=== PATIENT | female | born 1945 | race Caucasian/White ===

== ENCOUNTER 2016-06-19 07:40 | Outpatient (CLI) | payer OTHER | END 2016-06-19 07:41 | disposition home or self-care (01) | DX: Z01.812 Encounter for preprocedural laboratory examination (principal); N39.0 Urinary tract infection, site not specified; R73.09 Other abnormal glucose ==

== ENCOUNTER 2017-01-13 20:30 | Outpatient (CLI) | payer OTHER | END 2017-01-13 20:31 | disposition critical access hospital (66) | LOC: EMS 20:30 | PROVIDERS: ATTEND Surgery | DX: R55 Syncope and collapse (principal) | CPT/HCPCS: A0425; A0427 ==

== ENCOUNTER 2017-01-13 20:57 | Observation (INO) | payer MEDICARE, OTHER ==
--- NOTE | 2017-01-13 21:20 | ED Physician Documentation ---
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 near syncope tonight got up from her chair and felt near syncopal sat down - no fall or injury sx lasted 20 min per EMS daughter described pt as pale and diaphoretic pulse not checked - do not know if fast or slow - pt was breathing by report no CP or SOA or palp no recent med changes no hx of same Review of Systems Constitutional: denies: Fever, Chills Cardiac: denies: Chest pain / pressure, Palpitations Respiratory: denies: Dyspnea GI: denies: Abdominal Pain, Nausea, Vomiting Neurologic: reports: Near syncope Immunocompromised: denies: Immunocompromised PD PAST MEDICAL HISTORY - Past Medical History Past Medical History: Yes Cardiovascular: High cholesterol Endocrine/Autoimmune: HyPOthyroidism GI: GERD - Past Surgical History Past Surgical History: Yes Ortho: Carpal Tunnel surgery HEENT: Tonsil/Adenoidectomy - Present Medications Home Medications: Ambulatory Orders Medication Instructions Recorded Confirmed Diflunisal 500 mg PO BID 07/30/14 01/13/17 Levothyroxine [Synthroid] 150 mg PO DAILY 06/04/15 01/13/17 Hydrocodone/Acetaminophen 1 tab PO Q6HR PRN 01/13/17 01/13/17 [Hydrocodon-Acetaminophn 10-325] - Allergies Allergies/Adverse Reactions: Allergies Allergy/AdvReac Type Severity Reaction Status Date / Time meperidine HCl * Allergy Unknown Verified 07/30/14 09:14 [From Demerol] Penicillins Allergy Unknown Verified 07/30/14 09:14 - Social History Does the pt smoke?: No Smoking Status: Never smoker Does the pt drink ETOH?: Yes ETOH Use: Wine Does the pt have substance abuse?: No - Immunizations Immunizations are current?: No Immunizations: TDAP current <10years - POLST Patient has POLST: No PD ED PE NORMAL - Vitals Vital signs reviewed: Yes - General General: Alert and oriented X 3 - Cardiac Cardiac: RRR - Respiratory Respiratory: No respiratory distress, Clear bilaterally - Abdomen Abdomen: Soft, Non tender - Derm Derm: Normal color - Neuro Neuro: Alert and oriented X 3, 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, No motor deficit, Normal speech - Psych Psych: Normal mood Results - Vitals Vitals: Vital Signs - 24 hr 01/13/17 01/13/17 01/13/17 21:00 22:38 23:42 Temperature 36.6 C Heart Rate 82 74 76 Respiratory 20 16 16 Rate Blood Pressure 127/60 105/84 H 108/53 L O2 Saturation 96 95 94 Oxygen O2 Source Room air - EKG (time done) 2104 Rate: Rate (enter#) Rhythm: NSR Intervals: Normal CT QRS: Normal Ischemia: Non specific changes (flat T waves inf and lateral) - Labs Labs: Laboratory Tests 01/13/17 01/13/17 01/13/17 21:20 21:20 21:20 WBC 6.8 RBC 4.22 Hgb 14.0 Hct 41.2 MCV 97.7 MCH 33.3 H MCHC 34.0 RDW 13.2 Plt Count 244 MPV 8.1 Neut # 4.7 Lymph # 1.5 [place] # 0.5 Eos # 0.1 Baso # 0.0 Absolute Nucleated RBC 0.00 Nucleated RBC % 0.1 Sodium 136 Potassium 3.6 Chloride 100 L Carbon Dioxide 22 Anion Gap 14.0 H BUN 15 Creatinine 0.8 Estimated GFR (MDRD) 71 L Glucose 168 H Calcium 9.1 Total Bilirubin 0.3 AST 21 ALT 15 Alkaline Phosphatase 85 Troponin I < 0.04 Total Protein 7.1 Albumin 3.9 Globulin 3.2 Albumin/Globulin Ratio 1.2 Lipase 45 - Rads (name of study) [facility] Radiology: See rad report (neg) PD MEDICAL DECISION MAKING - ED course ED course: NSR on EKG and tele but merits longer period of tele and echo will req hospitalist to admit tele obs spoke to hospitalist - she req [facility] Departure - Departure Disposition: ED Place in Observation Clinical Impression: Near syncope Discharge Date/Time: 01/14/17 00:12
[2017-01-13 21:28] LABS: BASOPHILS % (AUTO) 0.4 %; EOSINOPHILS # (AUTO) 0.1 10^3/uL (0.0-0.7); EOSINOPHILS % (AUTO) 1.6 %; HCT - HEMATOCRIT 41.2 % (37.0-47.0); LYMPHOCYTES # (AUTO) 1.5 10^3/uL (1.5-3.5); LYMPHOCYTES % (AUTO) 21.5 %; MEAN CORPUSCULAR HEMOGLOBIN 33.3 pg (27.0-31.0); MEAN CORPUSCULAR VOLUME 97.7 fL (81.0-99.0); MEAN PLATELET VOLUME 8.1 fL (7.9-10.8); MONOCYTES # (AUTO) 0.5 10^3/uL (0.0-1.0); MONOCYTES % (AUTO) 7.5 %; NEUTROPHILS # (AUTO) 4.7 10^3/uL (1.5-6.6); NUCLEATED RED BLOOD CELLS AUTO 0.1 /100WBC; RED BLOOD COUNT 4.22 10^6/uL (4.20-5.40); RED CELL DISTRIBUTION WIDTH 13.2 % (12.0-15.0); UNCORRECTED WHITE BLOOD COUNT 6.8 x10^3/uL; WHITE BLOOD COUNT 6.8 x10^3/uL (4.8-10.8)
[2017-01-13] MEDS: SODIUM CHLORIDE 0.9% 1,000 ML IV ONE (21:30)
[2017-01-13 21:42] LABS: ALBUMIN/GLOBULIN RATIO 1.2 (1.0-2.2); BILIRUBIN,TOTAL 0.3 mg/dL (0.2-1.0); CALCIUM 9.1 mg/dL (8.5-10.3); CREATININE 0.8 mg/dL (0.4-1.0); POTASSIUM 3.6 mmol/L (3.5-5.0); TOTAL PROTEIN 7.1 g/dL (6.7-8.2)
[2017-01-13] MEDS ORDERED: SODIUM CHLORIDE FLUSH 0.9% 10 ML SYRINGE IVP PRN (23:54)
[2017-01-13] MEDS ORDERED: ONDANSETRON 4 MG/2 ML VIAL IVP PRN (23:54)
--- NOTE | 2017-01-14 00:30 | CT Preliminary Report ---
Exam: CT HEAD W/O IMPRESSION: Normal head CT. [facility] SITE ID: [id number]
--- NOTE | 2017-01-14 00:33 | CT Report ---
EXAM: CT HEAD EXAM DATE: 01/14/2017 12:03 AM. CLINICAL HISTORY: Near syncope. COMPARISON: Head CT 09/13/2007. TECHNIQUE: Multiaxial CT images were obtained from the foramen magnum to the vertex. Reformats: Coron al. IV contrast: None. In accordance with CT protocol optimization, one or more of the following dose reduction techniques w ere utilized for this exam: automated exposure control, adjustment of mA and/or KV based on patient s ize, or use of iterative reconstructive technique. FINDINGS: Parenchyma: No intraparenchymal hemorrhage. No evidence of mass, midline shift, or CT findings of inf arction. Sutton-white differentiation is distinct. Extraaxial Spaces: Normal for age. No subdural or epidural collections identified. Ventricles: Normal in size and position. Sinuses and Orbits: Imaged paranasal sinuses, orbits, and mastoids show no significant abnormality. Bones: No evidence of fracture or calvarial defect. Other: None. IMPRESSION: Normal head CT. [facility] Referring Provider Line: [phone] SITE ID: [id number]
[2017-01-14] MEDS: SODIUM CHLORIDE 0.9% 1,000 ML IV ONE (02:12)
--- NOTE | 2017-01-14 02:20 | HISTORY & PHYSICAL EXAMINATION ---
DATE OF ADMISSION: 01/13/2017 Please note that I did see the patient and entered admission orders prior to midnight. CHIEF COMPLAINT: Presyncope. 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 She is fully functional and usually in good general health. She had screening outpatient cardiology evaluation in the past, but was not found with any cardiac abnormality. She does have hypothyroidism and osteoarthritis. No other chronic medical problems. The patient was brought into the ER by ambulance after she experienced a presyncopal episode at her home, which lasted for about 20 minutes. The patient reported that she was watching television on the evening of 01/13/2017, she got up from a chair, at which time she felt dizzy. She needed to lower herself on the floor and she felt like she could not move. The patient described that she felt paralyzed. Subsequently, she texted her daughter, who lives next door, and came to help her. However, later on, the patient did not remember texting her daughter. The daughter described that the patient appeared pale, diaphoretic and slow with her responses. She also appeared somewhat confused. The daughter called 911 and en route, the patient spontaneously recovered and by the time I interviewed her, she was back to her normal and usual state of health. Regarding additional symptoms, the patient denied chest pain, shortness of breath, or loss of consciousness. She, however, felt nauseous and had a mild headache during the episode. Upon presentation to the ER, the patient was hemodynamically stable, although her blood pressure was borderline low around 100/80. She was afebrile, and her ER workup was negative. In particular, she had an unremarkable EKG. Negative CT scan of the brain. Unremarkable laboratory workup. Negative troponin. Urinalysis was sent, but is pending at the time of this dictation. PAST MEDICAL HISTORY: 1. Hypothyroidism. 2. Osteoarthritis. 3. Degenerative disk disease of the spine with L4-L5 stenosis. 4. Outpatient medications include thyroid supplements and p.r.n. hydrocodone. REVIEW OF SYSTEMS Please see pertinent positives and pertinent negatives listed above in the history of presenting illness, there was no additional complaint on the 12- point review. FAMILY HISTORY: Positive for amyloidosis in the mother. Father is healthy and alive at age 95. SOCIAL HISTORY: The patient does not smoke. She drinks alcohol occasionally. CODE STATUS IS FULL CODE. ER workup revealed per electronic medical record. PHYSICAL EXAMINATION: VITAL SIGNS: Temperature of 36.6 Celsius, respiration rate 18, oxygen saturation 96% on room air, heart rate in the 70s, blood pressure 110/80. GENERAL: The patient is a well-developed female who was not in distress. HEENT: Skin: No pallor, no jaundice. Sclerae are mildly injected. CARDIOVASCULAR: S1, S2, regular rate and rhythm. No murmur, rub, or gallop. RESPIRATORY: Clear to auscultation without wheeze or crackle. ABDOMEN: Soft, benign, nontender. Bowel tones heard. LYMPH: Mild pitting edema. MUSCULOSKELETAL: Atraumatic. NEUROLOGIC: Alert, oriented, intact cognition and mentation. Neurologically nonfocal. PSYCH: Cooperative. ASSESSMENT AND PLAN: The patient is a 71-year-old, fully functional female with not much past medical history, who presented with an episode of presyncope. ER workup was negative, and there is no obvious reason to explain the presyncopal episode. Therefore, she will be kept overnight, monitored on telemetry to rule out cardiac arrhythmia. In addition, we will request outpatient records to be sent. We will review outpatient records to see what kind of prior tests and workup the patient had. In particular, will check if she had a recent echocardiogram, carotid ultrasound or any additional study. As far as etiology of the patient's presentation, most likely she experienced a vagal response plus /minus an orthostatic change. Short episode of cardiac arrhythmia is also possible. PLAN AND ORDERS: 1. The patient is getting admitted under observation, will be monitored on telemetry, we will request outpatient records to see prior tests and workups. If the patient remains stable overnight, then she can be safely discharged and possibly have further tests performed as an outpatient. In addition, we will check urinalysis and orthostatic vital signs. 2. DVT prophylaxis with foot pumps, if the patient remains hospitalized beyond 24 hours, then we will consider pharmacologic prophylaxis, as well. Time spent in the care of this patient was 50 minutes. JOB #: [id number] EXT JOB #:[id number] EBONY
[2017-01-14] MEDS ORDERED: HYDROcod/ACETAM 10 MG/325 MG TABLET PO PRN (04:55)
[2017-01-14] MEDS ORDERED: ACETAMINOPHEN 500 MG TABLET PO SCH (05:35)
[2017-01-14 05:41] LABS: BILIRUBIN,URINE NEGATIVE (NEGATIVE); PH,URINE 5.5 PH (5.0-7.5)
[2017-01-14 05:49] LABS: UA w/ MICROSCOPIC CHARGE YES
[2017-01-14 05:55] LABS: UR CULTURE IF IND INDICATED; WBC,URINE 0-3 /HPF (0-5)
[2017-01-14] MEDS ORDERED: SODIUM CHLORIDE FLUSH 0.9% 10 ML SYRINGE IVP SCH (06:00)
--- NOTE | 2017-01-14 06:30 | XRAY Preliminary Report ---
Exam: XR CHEST 2 VIEW PA/LAT IMPRESSION: 1. Borderline heart size. No acute abnormality. [facility] SITE ID: [id number]
--- NOTE | 2017-01-14 06:32 | XRAY Report ---
EXAM: CHEST RADIOGRAPHY EXAM DATE: 01/14/2017 06:19 AM. CLINICAL HISTORY: Presyncope. COMPARISON: 07/06/2007. TECHNIQUE: 2 views. FINDINGS: Lungs/Pleura: No alveolar consolidation or pleural effusion. No pneumothorax. Mediastinum: Heart size upper normal. Aortic atherosclerosis. Other: None. IMPRESSION: 1. Borderline heart size. No acute abnormality. [facility] Referring Provider Line: [phone] SITE ID: [id number]
[2017-01-14] MEDS ORDERED: LEVOTHYROXINE 75 MCG TABLET PO SCH (07:00)
[2017-01-14] MEDS ORDERED: POLYETHYLENE GLYCOL 3350 17 GM PACKET PO SCH (09:00)
[2017-01-14] MEDS ORDERED: DIFLUNISAL 500 MG PO SCH (09:30)
[2017-01-14] MEDS ORDERED: SMX/TMP 800MG/160MG 10ML 20 ML in DEXTROSE 5% 500 ML IV ONE (10:17)
--- NOTE | 2017-01-14 10:30 | Discharge Plan ---
Discharge Plan Disposition: Home, Self Care Condition: Good Prescriptions: Sulfamethox/Trimeth 800/160 [Bactrim Ds] 1 tab PO BID 7 Days #13 tablet Diet: Regular Activity Restrictions: No Restrictions Shower Restrictions: No Driving Restrictions: No Weight Bearing: Full Weight Additional Instructions or Follow Up instructions: Please see your PCP in the next few days as a follow up to this hospital stay. Please finish your whole course of antibiotics for UTI. If urinary incontinence continues, further evaluation should be completed. Drink plenty of fluids. No Smoking: If you smoke, Please STOP! Call for help. Follow-up with: Delphine Dykes MD [Primary Care Provider] -
--- NOTE | 2017-01-14 10:31 | DISCHARGE SUMMARY ---
Discharge Summary Admit Date: 01/13/17 Discharge Date: 01/14/17 Discharging Provider: DEONTE Mccarty Primary Care Provider: Delphine Dykes Code Status: Attempt Resuscitation Condition at Discharge: Good Discharge Disposition: 01 Home, Self Care - DIAGNOSES Admission Diagnoses: Syncope UTI AMS Dizziness DVT prophylaxis Full code status Discharge Diagnoses with Status of Each Condition: UTI: Patient was found to have a positive UA that was obtained in the ED for nitrites and bacteria. Cultures grew out Escherichia coli Plan: Patient started on Bactrim that will be continued for 7 days. Pre-syncope: Patient reports to have some warning when an episode comes on. Plan: Stay well hydrated and monitor blood pressure if able. Follow up with PCP after discharge. AMS: This was very temporary, but noted to have some episodes of not remembering certain events. Plan: Take precautions to prevent further episodes. Urinary Incontinence: This was first noticed weeks prior to actual UTI detected. Plan:If this is not improving, patient was advised for further work up. - HPI History of Present Illness: Zamzam Mazariegos is a 71 year old female with a PMX of hypothyroidism, osteoarthritis, and degenerative disk disease of the spine L4-L5 stenosis, who came to the ED with unexplained presyncopal episode. 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 In the evening of 01/13, she was watching TV, got up to go into the kitchen, felt dizzy and lowered herself to the floor. She described herself as feeling paralyzed, texted her daughter for help, but does not remember that. Her daughter told the EMS that her mother looked pale, diaphoretic, mildly confused, and had slow responses. Once she arrived in the ED, she was feeling better, but was admitted for observation for a syncope work up, UA and telemetry monitoring. - HOSPITAL COURSE Hospital Course: Patient had a fairly non-eventful work up, but was found to have a UTI that may have been the cause of her syncope. She was encouraged to stay hydrated and to get further work up of her urinary incontinence if it does not improve. - ALLERGIES Allergies/Adverse Reactions: Allergies Allergy/AdvReac Type Severity Reaction Status Date / Time meperidine HCl * Allergy Unknown Verified 07/30/14 09:14 [From Demerol] Penicillins Allergy Unknown Verified 07/30/14 09:14 - MEDICATIONS Home Medications: Ambulatory Orders Medication Instructions Recorded Confirmed Diflunisal 500 mg PO DAILY 07/30/14 01/14/17 Hydrocodone/Acetaminophen 1 tab PO PRN PRN 01/13/17 01/14/17 [Hydrocodon-Acetaminophn 10-325] Aspirin 975 mg PO PRN PRN 01/14/17 01/14/17 Levothyroxine Sodium 100 mcg PO QDAC 01/14/17 01/14/17 Sulfamethox/Trimeth 800/160 1 tab PO BID 7 Days #13 tablet 01/14/17 [Bactrim Ds] - PHYSICAL EXAM AT DISCHARGE General Appearance: positive: No acute distress, Alert Eyes Bilateral: positive: Normal inspection, PERRL, EOMI ENT: positive: ENT inspection nml, Pharynx nml, No signs of dehydration Neck: positive: Nml inspection, Thyroid nml, No JVD, Trachea midline Respiratory: positive: Chest non-tender, No respiratory distress, Breath sounds nml Cardiovascular: positive: Regular rate & rhythm, No gallop Peripheral Pulses: positive: 2+ Abdomen: positive: Non-tender, No organomegaly, Nml bowel sounds, No distention Back: positive: Nml inspection Skin: positive: Color nml, No rash, Warm, Dry Extremities: positive: Non-tender, Full ROM, Nml appearance, No pedal edema Neurologic/Psychiatric: positive: Oriented x3, CN's nml (2-12), Motor nml, Sensation nml, Mood/affect nml Reflexes: Bicep (R): 4+, Bicep (L): 4+, Ankle (R): 3+, Ankle (L): 3+ - LABS Result Diagrams: 01/13/17 21:20 01/13/17 21:20 - DIAGNOSTIC IMAGING Diagnostic Imaging Results: Final report reviewed Diagnostic Imaging Results Comments: Echocardiogram: Showed mild LV hypertrophy, EF 60%. - FOLLOW UP Follow Up: Please see your PCP in the next few days as a follow up to this hospital stay. Please finish your whole course of antibiotics for UTI. If urinary incontinence continues, further evaluation should be completed. - TIME SPENT Time Spent in Discharge (Minutes): 60
[2017-01-14] MEDS ORDERED: SULFAMETH/TRIMETH DS 800/160 MG TABLET PO SCH (11:00)
[2017-01-14] MEDS ORDERED: ASPIRIN 325 MG TABLET PO PRN (11:09)
[2017-01-14] MEDS ORDERED: LEVOTHYROXINE 100 MCG TABLET PO SCH (12:00)
[2017-01-14 15:42] VITALS: BP 150/82
--- NOTE | 2017-01-14 16:09 | Ultrasound Report ---
CAROTID DUPLEX: 01/14/2017 CLINICAL INDICATION: Syncope. TECHNIQUE: Real-time sonographic vascular imaging was performed by the senior auditor through the carotid arteries utilizing both color-flow and Doppler spectral analysis. Multiple safety representative static images were saved for review. Vessel PSV cm/sec 2D Plaque Estimate % EDV cm/sec ICA/CCA PSV % Stenosis RCCA Prox 89 -- RCCA Dist 73 19 -- RECA 131 -- RT BULB 90 -- 12 1.23 JOSEPH Prox 78 -- 18 1.06 JOSEPH Mid 75 -- 19 1.02 JOSEPH Dist 96 -- 22 1.31 RVA 38 RVA flow direction: Antegrade. Vessel PSV cm/sec 2D Plaque Estimate % EDV cm/sec ICA/CCA PSV % Stenosis LCCA Prox 76 -- LCCA Dist 80 15 -- LECA 97 -- LFT BULB 87 -- 21 1.08 LICA Prox 96 -- 22 1.20 LICA Mid 60 -- 14 0.75 LICA Dist 99 -- 30 1.23 LVA 47 LVA flow direction: Antegrade. Velocity criteria are extrapolated from diameter data as defined by the Society of Radiologists in Ultrasound Consensus Conference Radiology 2003; 229; 340-346. Degree of Stenosis % ICA PSV cm/sec Plaque Estimate % ICA/CCA RSV Ratio ICA EDV cm/sec Normal < 125 None < 2.0 < 40 <50 < 125 < 50 < 2.0 < 40 50-69 125 - 130 >/= 50 2.0 - 4.0 40 - 100 >/= 70 but less than near occlusion > 230 >/= 50 > 4.0 > 100 Near occlusion High, low, or undetectable Visible lumen Variable Variable Total occlusion Undetectable No detectable lumen Not applicable Not applicable FINDINGS RIGHT: There is minimal plaquing in the right carotid bifurcation, without evidence of a focal hemodynamically significant carotid stenosis. LEFT: There is hypoechoic plaquing in the left carotid bifurcation, without evidence of a focal hemodynamically significant carotid stenosis. The vertebral arteries demonstrate antegrade flow bilaterally. IMPRESSION: NO EVIDENCE OF A FOCAL HEMODYNAMICALLY SIGNIFICANT CAROTID STENOSIS. MTDD
== END 2017-01-14 15:49 | disposition home or self-care (01) ==
LOC: EDUNIT# → ED 20:57 → OBS 23:54
PROVIDERS: ADMIT Internal Medicine; ATTEND Nurse Practitioner
DX: N39.0 Urinary tract infection, site not specified (principal); B96.20 Unspecified Escherichia coli [E. coli] as the cause of diseases classified elsewhere; R55 Syncope and collapse; R32 Unspecified urinary incontinence; E03.9 Hypothyroidism, unspecified; M51.36 Other intervertebral disc degeneration, lumbar region; M19.90 Unspecified osteoarthritis, unspecified site; Z88.0 Allergy status to penicillin; Z83.49 Family history of other endocrine, nutritional and metabolic diseases
CPT/HCPCS: 36415; 70450; 71020; 80053; 81001; 83690; 84443; 84484; 85025; 85379; 87077; 87086; 87181; 93005; 93306; 93880; 96360; 96361; 99218; 99284; A9270; 81003

== ENCOUNTER 2017-12-07 10:19 | Outpatient (CLI) | payer MEDICARE, OTHER ==
[2017-12-07 18:10] LABS: BILIRUBIN,URINE NEGATIVE (NEGATIVE); GLUCOSE, URINE (UA) NEGATIVE (NEGATIVE); KETONES,URINE (UA) NEGATIVE (NEGATIVE); LEUKOCYTE ESTERASE, URINE NEGATIVE (NEGATIVE); NITRITE,URINE NEGATIVE (NEGATIVE); OCCULT BLOOD,URINE NEGATIVE (NEGATIVE); PROTEIN,URINE NEGATIVE (NEGATIVE); UROBILINOGEN,URINE 0.2 (NORMAL) E.U./dL (NORMAL)
[2017-12-07 18:12] LABS: CLARITY,URINE CLEAR (CLEAR)
== END 2017-12-07 10:20 | disposition home or self-care (01) ==
LOC: LAB.F 10:19
PROVIDERS: ATTEND Internal Medicine
DX: R35.0 Frequency of micturition (principal); R39.89 Other symptoms and signs involving the genitourinary system
CPT/HCPCS: 81001; 81003; 87086

== ENCOUNTER 2017-12-16 09:04 | Outpatient (CLI) | payer MEDICARE, OTHER ==
[2017-12-16 09:30] LABS: CREATININE 0.7 mg/dL (0.4-1.0)
== END 2017-12-16 09:05 | disposition home or self-care (01) ==
LOC: LAB 09:04
PROVIDERS: ATTEND Registered Nurse
DX: R10.30 Lower abdominal pain, unspecified (principal)
CPT/HCPCS: 36415; 82565

== ENCOUNTER 2017-12-17 11:50 | Outpatient (CLI) | payer MEDICARE, OTHER ==
[2017-12-17] MEDS ORDERED: IOPAMIDOL-300 50 ML VIAL ONE (12:47)
[2017-12-17] MEDS ORDERED: IOPAMIDOL-300 100 ML VIAL ONE (12:47)
[2017-12-17] MEDS ORDERED: IOPAMIDOL-300 100 ML VIAL IVP ONE (14:24)
[2017-12-17] MEDS ORDERED: IOPAMIDOL-300 50 ML VIAL PO ONE (14:24)
--- NOTE | 2017-12-17 16:30 | CT Report ---
Reason: LOWER ABD PAIN,UNPECIFIED Procedure Date: 12/17/2017 Accession Number: [id number] / [id number] Procedure: CT - Abdomen/Pelvis W/ CPT Code: FULL RESULT: EXAM: CT ABDOMEN AND PELVIS EXAM DATE: 12/17/2017 02:20 PM. CLINICAL HISTORY: LOWER ABD PAIN,UNPECIFIED. COMPARISONS: ABDOMEN/PELVIS W/O 06/04/2015 5:27 PM. TECHNIQUE: Routine helical CT imaging was performed through the abdomen and pelvis. IV contrast: ISOVUE 300 100mL. Enteric contrast: Yes. Reconstructions: Coronal and sagittal. In accordance with CT protocol optimization, one or more of the following dose reduction techniques were utilized for this exam: automated exposure control, adjustment of mA and/or KV based on patient size, or use of iterative reconstructive technique. FINDINGS: Lung Bases: There is mild dependent atelectasis. Liver: Normal. No masses. Gallbladder/Bile Ducts: Unremarkable. Spleen: Normal. Pancreas: Normal. Adrenal Glands: Normal. Kidneys: Normal. No masses or hydronephrosis. Peritoneal Cavity/Bowel: Normal. No free fluid, free air or adenopathy. No masses or acute inflammatory process. There are a moderate number of scattered diverticula within the colon. The appendix appears normal. There is an area of mild fat stranding superior to the sigmoid colon in the pelvis around a diverticulum best seen on coronal image 20, question mild diverticulitis. No abnormal fluid or gas collection. Pelvic Organs: Normal. The bladder and visualized pelvic organs are within normal limits. Vasculature: There is moderate calcification of the abdominal aorta without aneurysm. Bones: There is moderate disk height loss at L4-L5. Other: None. IMPRESSION: 1. Colonic diverticulosis with a finding of mild diverticulitis of the sigmoid colon. 2. No obstruction, abscess, perforation, or other complication. [facility]
== END 2017-12-17 11:51 | disposition home or self-care (01) ==
LOC: DI 11:50
PROVIDERS: ATTEND Registered Nurse
DX: K57.32 Diverticulitis of large intestine without perforation or abscess without bleeding (principal); K57.30 Diverticulosis of large intestine without perforation or abscess without bleeding
CPT/HCPCS: 74177; Q9967

== ENCOUNTER 2019-09-25 13:20 | Outpatient (CLI) | payer MEDICARE, OTHER ==
--- NOTE | 2019-09-25 14:26 | SLEEP CARE CONSULTATION ---
Information from patient questionnaire entered by Amparo Chen. I have reviewed and concur with the information entered by Amparo Chen. This document represents the service I personally performed and the decisions made by me, Danika Umana MD, [facility]. History of Present Illness Service Date and Time: 09/25/2019 1320 Reason for Visit: New patient, Previously diagnosed sleep apnea (Severe - AHI 44.0 in 2007), sleep apnea on CPAP therapy, Re-establish care Chief Complaint: reports: Insomnia, Unrefreshed sleep, Snoring, Observed pauses in breathing, Fatigue, Frequent awakenings at night, Other (pain) Duration of Symptoms: 14 years Usual bedtime: 8-10 pm Time it takes to fall asleep: 15-30 mins Snores at night: Yes Observed to quit breathing while asleep: Yes Number of times waking at night: 2-4 Reasons for waking at night: reports: Snoring, Gasping for air, Pain, Bathroom Toss, Turn, or Twitch while sleeping: Yes Recalls having dreams: Yes Usually gets out of bed at: 5-6 am Feels refreshed in the morning: No Morning headache: No Sleepy or fatigued during the day: Yes (fatigued) Ever fallen asleep while driving: No Takes day naps: No Dreams during day naps: No Prior sleep studies: Yes Year and Where: 2007 [facility] in [place], [place] Additional HPI information: I had the pleasure of seeing Ms. Mazariegos today regarding obstructive sleep apnea-hypopnea. As you know, she is a 73 year old lady who was diagnosed with the sleep-disordered breathing in [place] in 2007. The AHI was 44. At her last appointment in 2013, she was using her CPAP adequately. The device was set at 10 15 cmH2O. She hardly uses her CPAP. She said the air blew out her mouth and made it very dry. She wore the ResMed AirFit P-10 nasal pillows. She did not like full face masks because she is claustrophobic. Since then she has lost 25 lbs. - Parasomnia Symptoms Ever been unable to move upon waking from sleep: Yes Ever felt weak in the knees when startled or emotional: Yes Bothered by creepy, crawly, restless sensations in legs: No Problems with memory or concentration: Yes (sometimes) CPAP Compliance Data - Data Reviewed with Patient Average duration of nightly device use: 4.1 Compliance rate %: 16.7 Current pressure setting (cmH2O): 10-15 Humidity settin Average residual AHI: 0.9 Average large leak: 45 sec Subjective Initial [place] Sleepiness Scale score: 12 (in 2013) Current [place] Sleepiness Scale score: 8 Past Medical History Past Medical History: reports: Arthritis, Hypothyroidism, GERD, Other (TTR - Transthyreitin Amyloidosis) Social History 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 Patient is / and lives in [place]. Have you smoked in the past 12 months: No Alcohol use: Yes Alcohol amount and frequency: 2-3 drinks daily Caffeine use: Yes Caffeine amount and frequency: 1 cup of coffee in the AM Family History Family history of sleep disordered breathing: Yes (grandmother, daughter (both )) Allergies and Home Medications Drug allergies reviewed: Yes Home medication list reviewed: Yes Review of Systems Weight loss over past 5 years: 25 (keto diet) Cardiovascular: denies: high blood pressure, palpitations, chest pain, irregular heart rate or pulse, leg or foot swelling, have to sleep sitting up, other Respiratory: denies: shortness of breath, wheeze, sputum production, chronic cough, other Gastrointestinal: reports: heartburn Urinary: reports: incontinence Neurological: denies: headaches, seizure, head trauma, disorientation, speech dysfunction, gait or balance problems, fainting or unconsciousness, other Psychiatric: denies: Attention Deficit Hyperactivity, anxiety, depression, mood disorder, claustrophobia, other Ear/Nose/Throat: reports: nasal congestion, dry mouth/throat, tonsillectomy, wisdom teeth removed Endocrine: reports: thyroid disease, too hot or cold Musculoskeletal: reports: joint pain, neck pain, back pain, muscle pain or cramping Immunologic: reports: allergies to food or environment (seasonal) Physical Exam Vital signs obtained and entered by: Detailed physical exam was not performed to comply with the COVID-19 precau Height: 5 ft 6 in Weight: 169 lb Body Mass Index: 27.2 BMI Classification: Overweight Impression and Plan IMPRESSION: 1. Obstructive Sleep Apnea-Hypopnea Syndrome, severe, as previously diagnosed, but untreated. The patient is interested trying the CPAP again. I showed her the new full face masks that are not so large. Despite the weight loss, she appears to still be loud snoring, frequent awakenings during the night, unrefreshed sleep, and daytime hypersomnolence. Narrow oropharynx and obesity are common predisposing factors for obstructive sleep apnea-hypopnea syndrome. Pathophysiology of sleep-disordered breathing was discussed. I recommend proceeding to polysomnography to confirm the diagnosis and to assess severity. If she has significant sleep disordered breathing, a new CPAP will be prescribed. Plan: 1. Schedule an in-laboratory polysomnography. 2. Avoid long distance driving or when feeling sleepy. 3. Avoid alcohol, sedative and muscle relaxant around bedtime. 4. Attempt to lose weight. 5. Return for follow up after the sleep study. Time Spent with Patient (minutes): 15
== END 2019-09-25 13:21 | disposition home or self-care (01) ==
LOC: SC 13:20
PROVIDERS: ATTEND Internal Medicine Pulmonary Disease
DX: G47.33 Obstructive sleep apnea (adult) (pediatric) (principal); E66.3 Overweight; Z68.27 Body mass index [BMI] 27.0-27.9, adult
CPT/HCPCS: 99203; G0463; 99212

== ENCOUNTER 2020-05-05 10:06 | Outpatient (CLI) | payer MEDICARE, OTHER ==
[2020-05-05 16:23] LABS: CALCIUM 9.1 mg/dL (8.5-10.3); CREATININE 0.6 mg/dL (0.4-1.0)
== END 2020-05-05 10:07 | disposition home or self-care (01) ==
LOC: LAB.S 10:06
PROVIDERS: ATTEND Internal Medicine Cardiovascular Disease
DX: I10 Essential (primary) hypertension (principal)
CPT/HCPCS: 36415; 80048

== ENCOUNTER 2022-08-09 12:01 | Outpatient (CLI) | payer MEDICARE, OTHER ==
--- NOTE | 2022-08-09 14:30 | XRAY Report ---
PROCEDURE: Hand 3 View BILAT INDICATIONS: arthralgia TECHNIQUE: 3 views of the hand(s) acquired. COMPARISON: None. FINDINGS: Bones: No fractures or dislocations. No moderate to severe osteoarthritic changes are noted through out bilateral hand and wrist joints most notably in first CMC joint of right hand. Subtle radiolucenc ies are noted in bilateral second and third metacarpal heads as well as right first metacarpal base. Suspicious bony lesions. Soft tissues: No suspicious soft tissue calcifications or masses. IMPRESSION: No acute bony abnormality. 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 Ra diolucencies in bilateral second and third metacarpal heads and right first metacarpal base which may represent erosions secondary to inflammatory arthropathy. Reviewed by: Tommy Norris MD on 08/09/2022 2:29 PM PDT Approved by: Tommy Norris MD on 08/09/2022 2:29 PM PDT Station ID: [id number]
== END 2022-08-09 12:02 | disposition home or self-care (01) ==
LOC: DI 12:01
PROVIDERS: ATTEND Internal Medicine
DX: M19.041 Primary osteoarthritis, right hand (principal); M19.031 Primary osteoarthritis, right wrist